=== PATIENT | female | born 1960 | race Caucasian/White ===

== ENCOUNTER → 2023-04-21 | Outpatient (CLI) | payer MEDICARE, BC | END | disposition home or self-care (01) | LOC: LABPAT 12:10 | PROVIDERS: ATTEND Orthopaedic Surgery | DX: Z01.818 Encounter for other preprocedural examination (principal); M17.12 Unilateral primary osteoarthritis, left knee; R94.31 Abnormal electrocardiogram [ECG] [EKG]; Z22.322 Carrier or suspected carrier of Methicillin resistant Staphylococcus aureus | CPT/HCPCS: 87070; 93005 ==

== ENCOUNTER 2023-06-28 06:24 | Day surgery (SDC) | payer MEDICARE, OTHER ==
--- NOTE | 2023-06-27 08:16 | P.HPOR ---
History of Present Illness H&P Date: 06/27/23 Chief Complaint: Left knee pain The patient is a 63-year-old female who presents with progressive left knee pain for the past several years worsening recently. She has pain with walking along with stairs and getting up from a seated position. She notes she's been limping. She's tried medications in addition to injections without much relief. Review of Systems As per HPI Past Medical History Past Medical History: Hypertension, Liver Disease, Osteoarthritis (OA) Additional Past Medical History / Comment(s): Cirrhosis/fatty liver seen by liver specialist and LFT are now normal. History of Any Multi-Drug Resistant Organisms: None Reported Past Surgical History: Appendectomy, Cholecystectomy, Hysterectomy Additional Past Surgical History / Comment(s): Liver biopsy, colonoscopy Past Anesthesia/Blood Transfusion Reactions: Postoperative Nausea & Vomiting (PONV) Additional Past Anesthesia/Blood Transfusion Reaction / Comment(s): Pt has never received blood. Smoking Status: Never smoker - Past Family History Father Family Medical History: Cancer Additional Family Medical History / Comment(s): to metastatic prostate cancer. Mother Family Medical History: Dementia Additional Family Medical History / Comment(s): Early dementia. Medications and Allergies Home Medications Medication Instructions Recorded Confirmed Type Ibuprofen 600 mg PO Q8H PRN 06/22/23 06/22/23 History Lisinopril-Hctz 10-12.5 mg 1 tab PO QAM 06/22/23 06/22/23 History [Zestoretic 10-12.5] Milk Thistle 1,000 mg PO BID 06/22/23 06/22/23 History Vit No.179/Iron/Folic 1 tab PO QAM 06/22/23 06/22/23 History [ Tablet] Allergies Allergy/AdvReac Type Severity Reaction Status Date / Time No Known Allergies Allergy Verified 06/22/23 09:41 Physical Examination - Knee left Appearance: effusion Effusion grade: grade 2 Varus alignment in stance: 5 degrees Tenderness with palpation: anterior, medial Pain: throughout ROM Gait: limping ROM: extension: -15 degrees ROM: flexion: 110 degrees Crepitus with motion: Yes Strength: extension: 5/5 Strength: flexion: 5/5 Meniscal tests: medial meniscal tests: positive, medial joint line pain: positive Results The patient's a well-developed well-nourished female, 5 foot 7 proximally 220 pounds of endomorphic habitus. HEENT exam is nonfocal, neck is supple. She has painless passive motion of her left hip. Straight leg raise is negative. On the left knee, she is tender about the medial joint line. Clots are stable, Josh exam, Arleth's elicits medial pain. Her distal neurovascular appears intact in the left lower extremity. - Diagnostic results Knee x-ray: image reviewed (3 views of the left knee obtained in the office show severe medial and patellofemoral compartment osteoarthrosis.) Assessment and Plan Assessment: Left knee severe medial and patellofemoral compartment osteoarthrosis Obesity Plan: I talked to the patient with regard to her condition along with treatment options. At this point she remains quite symptomatic having pain and mechanical symptoms despite attempted conservative measures. After a thorough discussion she opted to proceed with surgery. We will plan to proceed with left total knee arthroplasty. We'll institute DVT prophylaxis postoperatively.
[~2023-06-28 06:24] MED LIST: ACETAMINOPHEN TAB 500 MG TAB PO PRN; MELOXICAM 7.5 MG TAB PO PRN; TRANEXAMIC 1,000 MG/100ML-NACL 1,000 MG in SALINE 1 100ML.BAG IVPB PRN
[2023-06-28] MEDS ORDERED: ONDANSETRON 4 MG/2 ML VIAL IVP ONE ×2 (06:58→14:14)
[2023-06-28] MEDS ORDERED: DEXAMETHASONE SOD PHOSPHATE 4 MG/ML 1 ML VIAL IV ONE (06:58)
[2023-06-28] MEDS: LACTATED RINGERS 1,000 ML IV SCH (07:06)
[2023-06-28] MEDS ORDERED: fentaNYL (PF) 50 MCG/ML 2 ML AMP IVP ONE (07:57)
[2023-06-28] MEDS ORDERED: MIDAZOLAM 2 MG/2 ML VIAL IVP ONE (07:57)
[2023-06-28 08:21] LABS: Partial Thromboplastin Time 22.7 sec (22.0-30.0); Prothrombin Time 10.4 sec (9.0-12.0)
--- NOTE | 2023-06-28 08:53 | P.ANPRN ---
Procedure Note - Anesthesia - Nerve Block Performed Left Adductor Canal Infusion Time Out Performed: Yes (0756) Date of Procedure: 06/28/23 Procedure Start Time: 07:57 Procedure Stop Time: 08:03 Location of Patient: PreOp Indication: Acute Post-Operative Pain, Requested by Surgeon Specifically requested for management of pain by : Tin Lang Sedation Type: Sedate with meaningful contact maintained Preparation: Sterile Prep, Sterile Dressing Position: Supine Catheter Depth at Skin (cm): 8 Catheter: Indwelling Needle Types: Pajunk Needle Gauge: 18 Ultrasound used to visualize needle placement: Yes Ultrasound used to observe medication spread: Yes Injectate: 0.5% Ropivacaine (see comment for volume) (15cc +5cc nacl pf) Blood Aspirated: No Pain Paresthesia on Injection Noted: No Resistance on Injection: Normal Image Stored and Saved: Yes Events: Uneventful and Well Tolerated
--- NOTE | 2023-06-28 08:54 | P.ANPRN ---
Procedure Note - Anesthesia - Nerve Block Performed Left iPack Single Time Out Performed: Yes (0756) Date of Procedure: 06/28/23 Procedure Start Time: :04 Procedure Stop Time: 08:07 Location of Patient: PreOp Indication: Acute Post-Operative Pain, Requested by Surgeon Specifically requested for management of pain by DrAlejandro: Tin Lagn Sedation Type: Sedate with meaningful contact maintained Preparation: Sterile Prep Position: Supine Catheter: None Needle Types: Pajunk Needle Gauge: 21 Ultrasound used to visualize needle placement: Yes Ultrasound used to observe medication spread: Yes Injectate: 0.5% Ropivacaine (see comment for volume) (15cc + 5cc nacl pf) Blood Aspirated: No Pain Paresthesia on Injection Noted: No Resistance on Injection: Normal Image Stored and Saved: Yes Events: Uneventful and Well Tolerated
[2023-06-28] MEDS ORDERED: ceFAZolin 1,000 MG in SODIUM CHLORIDE 0.9% 1,000 ML IRRIGATION ONE (09:21)
[2023-06-28] MEDS ORDERED: NALOXONE 0.4 MG/ML 1 ML VIAL IV PRN (10:28)
[2023-06-28] MEDS ORDERED: HYDROcodone/APAP 5-325MG 1 EACH TAB PO PRN (10:28)
[2023-06-28] MEDS ORDERED: HYDROmorphone 0.5 MG/0.5 ML SYRINGE IVP PRN (10:28)
[2023-06-28] MEDS ORDERED: MAGNESIUM HYDROXIDE 2,400 MG/30 ML CUP PO PRN (10:28)
[2023-06-28] MEDS ORDERED: hydrOXYzine pamoate 25 MG CAP PO PRN (10:28)
--- NOTE | 2023-06-28 11:00 | P.OP ---
Date of Procedure: 06/28/23 Preoperative Diagnosis: Left knee severe tricompartmental osteoarthrosis Postoperative Diagnosis: Same Procedure(s) Performed: Left total knee arthroplastycementedposterior stabilized Implants: Depuy Attune size 6 narrow cemented femoral component, size 5 cemented tibial component, 11 mm articular surface, 35 mm cemented patellar component. This is a posterior stabilized implant. Anesthesia: regional, spinal Surgeon: Tin Lang [employer] Furnace Operator Helper #1: Son Osborn Estimated Blood Loss (ml): 50 Pathology: none sent Condition: stable Indications for Procedure: The patient's a 63-year-old female presents with progressive left knee pain secondary to osteoarthrosis despite conservative measures. A discussion of the risks and benefits of operative intervention versus continued conservative measures was made with patient. She opted to proceed with surgery. Operative risks to include infection, neurovascular injury, development of blood clots, fracture, possible component loosening/failure and need for subsequent procedures was discussed. Informed consent was obtained. Operative Findings: As below Description of Procedure: The patient was brought to the operating room, and after induction of spinal anesthesia the left lower extremity was prepped and draped in a normal fashion. The tourniquet was inflated to 270 mm marker. A longitudinal incision extending 3 finger breaths above the superior pole of patella extending to the medial aspect the tibial tubercle was then made. The skin and subcutaneous tissues were divided sharply. Electrocautery was used for hemostasis. A medial parapatellar arthrotomy was performed. The medial soft tissues to include the superficial and deep portions of the medial collateral ligament were elevated subperiosteally. The patella was everted. A portion of the retropatellar fat pad was excised sharply. The anterior cruciate ligament was sacrificed. Blunt retractors were placed. A starting hole was made in the distal femur 1 cm anterior to the posterior cruciate ligament origin. An intramedullary femoral guide was then inserted planning on 5 valgus distal cut with 9 mm distal resection. The cutting block was pinned in place. The distal cut was then made. The posterior referencing sizing guide was utilized. I felt size 6 narrow was most appropriate. 3 of external rotation was built into the system and verified off the trans-epicondylar axis and the posterior condyles. The cutting block was pinned in place. The anterior, posterior, and chamfer cuts then made. Bone fragments were removed. The intercondylar guide was placed and the notch cut was made with a sagittal saw. The bone block was removed in one fragment. The trial component was then placed. There is good anterior to posterior and medial to lateral fit. The distal peg holes were drilled. The trial component was removed. Attention was then paid towards preparing the proximal tibia. An extra medullary guide was utilized in line with the tibial shaft and second metatarsal distally. I planned on 2 mm resection from the medial compartment. The cutting block was pinned in place. The proximal tibial cut was then made. The bone was removed in one fragment. The remnants of the medial and lateral menisci were excised at the capsular junction with electrocautery. The tibia sized most appropriately at size 5. The trial femoral and tibial components were placed along with a 11 mm articular surface. I was able to obtain full flexion and extension with internal and external rotation. After several flexion and extension cycles, the tibial rotation was marked with electrocautery line with the medial one third of the tibial tubercle. Attention was then paid towards preparing the patella. A patella reamer was utilized taking stem to 14 mm of bone stock. A good flush cut was made. The patella sized most appropriately 35 mm. The peg holes were drilled. The trial components placed. I had good patellofemoral tracking with no hands technique. The trial components were then removed. The tibia was prepared in the appropriate rotation with appropriate drill and keel punch. The posterior osteophytes were removed with a curved osteotome. The flexion and extension gaps were checked and felt to be symmetric at 11 mm. A trial components were then removed. The bony surfaces were prepared with pulsatile lavage and dried. The tibial component was then cemented place was fully seated. Excess cement was removed. The femoral component cemented place and was fully seated. Excess cement was removed. The trial 11 mm articular surface was placed and the knee was put in full extension. The patella component was cemented place. After the cement had sufficiently hardened, the knee was again taken through a range of motion. Again I was able to obtain full flexion and extension with varus and valgus stress. The trial 11 mm articular surface was removed and the final one inserted. This was fully seated. Care was taken to avoid any soft tissue interposition. Pulsatile lavage was again utilized. The medial parapatellar arthrotomy was closed with #2 Ethibond suture. The tourniquet was deflated with approximately 60 minutes total tourniquet time. Final hemostasis was obtained with the cautery. There was minimal bleeding therefore a deep drain was not placed. The subcutaneous tissues were reapproximated with interrupted 2-0 Vicryl sutures. The skin was reapproximated with 3-0 subcuticular strata fix suture. Skin tape and adhesive was applied. A sterile dressing was applied. The patient was awoken from sedation and transferred to recovery room in good condition. Blood loss was estimated at 50 mL. No complications were incurred. Sponge and needle counts were correct at the end of the case. Son KNOX assisted during the major components of this case to include exposure, bone resection, implantation, and closure.
[2023-06-28] MEDS: HYDROmorphone 0.5 MG/0.5 ML SYRINGE IVP PRN ×5 (11:06→22:28)
[2023-06-28] MEDS ORDERED: ROPIVACAINE 1,100 MG, SODIUM CHLORIDE 0.9% 500 ML 330 ML, EMPTY PAIN BALL 1 EACH MISCELLANE PRN ×2 (11:37)
--- NOTE | 2023-06-28 11:42 | XR ---
EXAMINATION TYPE: XR knee limited LT DATE OF EXAM: 06/28/2023 11:33 AM INDICATION: Patient age:Female; 63 years old; Reason for study: Evaluation for Postop abnormality and alignment; [facility]. COMPARISON: Left knee radiograph 04/21/2023 TECHNIQUE: The Left knee(s) was examined in AP and crosstable lateral projections. FINDINGS: Post surgical changes from left knee arthroplasty with distal femoral and proximal tibial components. Hardware appears intact with appropriate alignment. Associated soft tissue gas and edema . No acute fracture or dislocation. IMPRESSION: Postsurgical changes from left knee arthroplasty. Hardware appears intact with appropriate alignment.
--- NOTE | 2023-06-28 16:52 | P.CONS ---
History of Present Illness - Reason for Consult Consult date: 06/28/23 - History of Present Illness Patient is a 63-year-old female with history of hypertension presenting for elective total left knee arthroplasty. [facility] physicians was consulted for medical management. Patient currently denies any chest pain, shortness of breath, abdominal pain, nausea, vomiting, diarrhea, constipation, or urinary complaints. Vital signs within normal limits. Currently on room air. Only labs available her coags which are within normal limits. Pertinent positives and negatives as discussed in HPI, a complete review of systems was performed and all other systems are negative. Patient seen and examined at bedside. Vital signs reviewed General: nontoxic, no distress, appears at stated age Derm: warm, dry, dressing clean, dry, intact Head: atraumatic, normocephalic, symmetric Eyes: EOMI, no lid lag, anicteric sclera, pupils equal round reactive to light ENT: Nose and ears atraumatic Neck: No thyromegaly, supple Mouth: no lip lesion, mucus membranes moist Cardiovascular: S1S2 reg, no murmur, no edema Lungs: clear to auscultation bilateral, no rhonchi, no rales, no wheeze, no accessory muscle use Abdominal: soft, nontender to palpation, no guarding, no appreciable orga nomegaly Ext: no gross muscle atrophy, muscle strength muscle strength 5 out of 5 in all 4 extremities, no contractures Neuro: CN II-XII grossly intact Psych: Alert, oriented, appropriate affect Assessment/Plan: Status post left total knee arthroplasty Hypertension - Management per surgery - cbc, bmp pending - restarted home medications Thank you for allowing us to participate in the care of this pleasant patient. Do not hesitate to contact us with questions. Someone can be reached from the [facility] hospitalist group all hours of the day at [phone] or via [employer]. Past Medical History Past Medical History: Hypertension, Liver Disease, Osteoarthritis (OA) Additional Past Medical History / Comment(s): Cirrhosis/fatty liver seen by liver specialist and LFT are now normal. History of Any Multi-Drug Resistant Organisms: None Reported Past Surgical History: Appendectomy, Cholecystectomy, Hysterectomy Additional Past Surgical History / Comment(s): Liver biopsy, colonoscopy Past Anesthesia/Blood Transfusion Reactions: Postoperative Nausea & Vomiting (PONV) Additional Past Anesthesia/Blood Transfusion Reaction / Comm: Pt has never received blood. Smoking Status: Never smoker - Past Family History Father Family Medical History: Cancer Additional Family Medical History / Comment(s): to metastatic prostate cancer. Mother Family Medical History: Dementia Additional Family Medical History / Comment(s): Early dementia. Medications and Allergies Home Medications Medication Instructions Recorded Confirmed Type Ibuprofen 600 mg PO Q8H PRN 06/22/23 06/28/23 History Lisinopril-Hctz 10-12.5 mg 1 tab PO QAM 06/22/23 06/28/23 History [Zestoretic 10-12.5] Milk Thistle 1,000 mg PO BID 06/22/23 06/28/23 History Vit No.179/Iron/Folic 1 tab PO QAM 06/22/23 06/28/23 History [ Tablet] Allergies Allergy/AdvReac Type Severity Reaction Status Date / Time No Known Allergies Allergy Verified 06/28/23 07:39 Physical Exam Vitals: Vital Signs Temp Pulse Resp BP Pulse Ox 06/28/23 13:52 60 16 146/69 95 06/28/23 13:30 68 16 154/71 95 06/28/23 13:00 63 16 131/69 96 06/28/23 12:30 61 16 130/84 93 L 06/28/23 12:15 66 16 124/88 99 06/28/23 12:00 52 L 16 138/81 99 06/28/23 11:45 57 L 16 183/88 99 06/28/23 11:35 59 L 14 179/82 99 06/28/23 11:15 68 14 182/84 99 06/28/23 10:56 97.8 F 56 L 14 137/80 99 06/28/23 08:12 60 16 168/74 99 06/28/23 07:20 97.2 F L 63 16 178/87 98 Intake and Output 06/28/23 06/28/23 06/28/23 06:59 14:59 22:59 Intake Total 851 Output Total 50 Balance 801 Intake: IV 851 Output: Estimated Blood Loss 50 Other: Weight 103.4 kg
[2023-06-28] MEDS: SENNOSIDES-DOCUSATE SODIUM 1 EACH TAB PO SCH (21:22)
[2023-06-28] MEDS: HYDROcodone/APAP 7.5-325MG 1 EACH TAB PO PRN (21:22)
[2023-06-28] MEDS: ONDANSETRON 4 MG/2 ML VIAL IVP PRN (22:25)
[2023-06-29] MEDS: HYDROmorphone 0.5 MG/0.5 ML SYRINGE IVP PRN ×3 (00:38→08:23)
[2023-06-29] MEDS: HYDROcodone/APAP 7.5-325MG 1 EACH TAB PO PRN ×4 (03:29→23:22)
--- NOTE | 2023-06-29 06:46 | P.PN ---
Progress Note - Text Progress Note Date: 06/29/23 patient was seen and evaluated at bedside. Status post postoperative day 1 for left-sided total knee arthroplasty patient had adductor canal catheter for postop pain control. Patient rated pain at rest 5 out of 10 in severity. Patient describes pain is aching, throbbing type on the sides of the knee and back of the knee. Patient started walking with support. With activity patient pain levels are 6-7 out of 10 in severity. With the help of oral pain medications pain levels are tolerable. Patient denied any weakness/ numbness in lower extremities. patient denied any fever, pain over the catheter site. Physical exam: Patient vital signs stable Patient is alert awake oriented 3 responding to all questions appropriately Examination of the catheter site showed dressing intact, no leaking fluid around the catheter, no redness, no tenderness over the catheter insertion area. plan: status post postoperative day 1 for left side total knee arthroplasty with adductor canal catheter for pain control. Patient was discussed to continue the medication until the pump is completely empty and instructed the patient how to discontinue the catheter.
[2023-06-29] MEDS: RIVAROXABAN 10 MG TAB PO SCH (08:23)
[2023-06-29] MEDS: ONDANSETRON 4 MG/2 ML VIAL IVP PRN (08:23)
[2023-06-29] MEDS: LACTATED RINGERS 1,000 ML IV SCH (08:24)
[2023-06-29] MEDS ORDERED: HYDROcodone/APAP 5-325MG 1 EACH TAB PO PRN ×2 (08:35→09:44)
[2023-06-29] MEDS ORDERED: HYDROcodone/APAP 7.5-325MG 1 EACH TAB PO PRN (08:35)
[2023-06-29] MEDS: LISINOPRIL-HCTZ 10-12.5 MG 1 EACH TAB PO SCH (09:56)
[2023-06-29 10:53] LABS: Basophils # (A) 0.02 X 10*3/uL (0.00-0.10); Basophils % (A) 0.2 %; Eosinophils # (A) 0.01 X 10*3/uL (0.04-0.35); Eosinophils % (A) 0.1 %; HCT 34.8 % (37.2-46.3); HGB 11.4 d/dL (12.0-15.0); Lymphocytes # (A) 1.42 X 10*3/uL (0.90-5.00); Lymphocytes % (A) 14.4 %; MCH 29.9 pg (27.0-32.0); MCHC 32.8 d/dL (32.0-37.0); MCV 91.3 FL (80.0-97.0); Mean Platelet Volume 11.6 FL (9.5-12.2); Monocytes # (A) 1.38 X 10*3/uL (0.20-1.00); NRBC Per 100 WBC 0 X 10*3/uL (0.00-0.01); Neutrophils # (A) 7.03 X 10*3/uL (1.80-7.70); Neutrophils % (A) 71.1 %; Platelet Count 147 X 10*3/uL (140-440); RBC 3.81 X 10*6/uL (4.10-5.20); RDW 12.2 % (11.5-14.5); WBC 9.88 X 10*3/uL (4.50-10.00)
[2023-06-29 11:03] LABS: Blood Urea Nitrogen 11.7 mg/dL (9.0-27.0); Calcium 8.6 mg/dL (8.7-10.3); Carbon Dioxide 23.7 mmol/L (21.6-31.8); Chloride 104 mmol/L (96-109); Glucose 130 mg/dL (70-110); Potassium 3.6 mmol/L (3.5-5.5); Sodium 137 mmol/L (135-145)
--- NOTE | 2023-06-29 11:03 | P.PN ---
Subjective Progress Note Date: 06/29/23 Principal diagnosis: Left knee osteoarthritis Patient was seen at bedside this morning lying semirecumbent position with dressing to left upper extremity over knee. Patient says she has been in a lot of pain since surgery yesterday. Patient says she has not been up walking since surgery was performed. Patient says that she is not in too much pain to get up and walk. Patient says she has not had a bowel movement since surgery. Physical therapy had not yet been by to the room to work with patient. Patient does have a walker at home and does have spots and family at home that we'll be able to help her out. Patient states that most of the pain is at the front of the knee and rates it as 8/10 currently. Patient denies any radiation of pain. Patient denies any other changes. Patient denies chest pain, fever, shortness of breath, nausea, vomiting, change in vision, loss of bowel/bladder control. Objective - Vital Signs Vital signs: Vital Signs Temp 97.8 F 06/29/23 00:25 Pulse 72 06/29/23 00:25 Resp 18 06/29/23 00:25 BP 129/74 06/29/23 00:25 Pulse Ox 97 06/29/23 00:25 FiO2 Intake & Output 06/28/23 06/29/23 06/29/23 18:59 06:59 18:59 Intake Total 851 Output Total 450 50 Balance 401 -50 Weight 103.4 kg Intake: IV 851 Output: Urine 400 50 Estimated Blood Loss 50 Other: Voiding Method External Catheter - Exam Left knee: Incision is clean, dry, and intact. The exofin fusion tape is in good condition. There is minimal soft tissue swelling and ecchymosis surrounding the medial and lateral aspects of the incision. Calf is soft, no tenderness with palpation. Plantar flexion, dorsiflexion, EHL, FHL are intact. Sensory exam to light touch throughout the extremity is intact, dorsal pedis pulses 2+. - Labs CBC & Chem 7: 06/29/23 06:58 Assessment and Plan Assessment: 1. Left knee osteoarthritis - Postop day #1 status post left total knee arthroplasty Plan: 1. Left knee osteoarthritis - left total knee arthroplasty performed yesterday, 06/28/2023. Patient stable at bedside this morning. Patient has been in a lot of pain and has not been up walking. We will change pain medication from 1 Mineral every 6 hours to 12 every 6 hours as needed for pain. PT evaluation pending. We will plan to keep patient 1 more night for additional pain control and work with physical therapy. We will reassess tomorrow with plans for hopeful discharge home tomorrow with health services. 2. Appreciate medical management 3. Pain management - Mineral 12 every 6 hours; Vistaril for breakthrough pain 4. DVT prophylaxis - Xarelto in hospital 5. GI prophylaxis - senna 6. PT/OT - weightbearing as tolerated with walker 7. Encourage incentive spirometer use 8. Discharge planning - plan for discharge home tomorrow with health services Time with Patient: Less than 30
--- NOTE | 2023-06-29 11:44 | P.PN ---
Subjective Progress Note Date: 06/29/23 Subjective: Patient seen and examined at bedside. No acute events overnight. Continues to have significant knee pain. Denies any other complaints. Pertinent positives and negatives as discussed above, a complete review of systems was performed and all other systems are negative. Vitals Signs Reviewed. General: nontoxic, no distress, appears at stated age Derm: warm, dry, dressing clean, dry, intact Head: atraumatic, normocephalic, symmetric Eyes: EOMI, no lid lag, anicteric sclera, pupils equal round reactive to light ENT: Nose and ears atraumatic Neck: No thyromegaly, supple Mouth: no lip lesion, mucus membranes moist Cardiovascular: S1S2 reg, no murmur, no edema Lungs: clear to auscultation bilateral, no rhonchi, no rales, no wheeze, no accessory muscle use Abdominal: soft, nontender to palpation, no guarding, no appreciable organomegaly Ext: no gross muscle atrophy, muscle strength muscle strength 5 out of 5 in all 4 extremities, no contractures Neuro: CN II-XII grossly intact Psych: Alert, oriented, appropriate affect Data Reviewed Today: Pertinent Labs: WBC 9.88, hemoglobin 11.4, sodium 137, creatinine 0.6 Imaging: No new imaging Assessment and Plan: Status post left total knee arthroplasty Acute blood loss anemia, expected outcome of surgery Hypertension - Management per surgery -Surgery not reviewed, possibly discharge tomorrow with home care -Still having significant pain, currently on oral Kouts as needed, IV Dilaudid as needed -Pain management also following -Stable hemoglobin, no active bleeding -Continue home antihypertensives Thank you for allowing us to participate in the care of this pleasant patient. Do not hesitate to contact us with questions. Someone can be reached from the [facility] hospitalist group all hours of the day at [phone] or via [employer]. Objective - Vital Signs Vital signs: Vital Signs Temp 98.5 F 06/29/23 08:00 Pulse 74 06/29/23 08:00 Resp 18 06/29/23 08:00 BP 121/74 06/29/23 08:00 Pulse Ox 93 L 06/29/23 08:00 FiO2 Intake & Output 06/28/23 06/29/23 06/29/23 18:59 06:59 18:59 Intake Total 851 Output Total 450 50 Balance 401 -50 Weight 103.4 kg Intake: IV 851 Output: Urine 400 50 Estimated Blood Loss 50 Other: Voiding Method External Catheter External Catheter - Labs CBC & Chem 7: 06/29/23 06:58 06/29/23 06:57 Labs: Abnormal Lab Results - Last 24 Hours (Table) 06/29/23 06/29/23 Range/Units 06:57 06:58 RBC 3.81 L (4.10-5.20) X 10*6/uL Hgb 11.4 L (12.0-15.0) d/dL Hct 34.8 L (37.2-46.3) % Monocytes # 1.38 H (0.20-1.00) X 10*3/uL Eosinophils # 0.01 L (0.04-0.35) X 10*3/uL Glucose 130 H (70-110) mg/dL Calcium 8.6 L (8.7-10.3) mg/dL
[2023-06-29 19:51] VITALS: RESP 18
[2023-06-29] MEDS: SENNOSIDES-DOCUSATE SODIUM 1 EACH TAB PO SCH (20:52)
[2023-06-30 03:28] VITALS: PULSE 74
[2023-06-30] MEDS: HYDROcodone/APAP 7.5-325MG 1 EACH TAB PO PRN ×2 (05:02→11:43)
[2023-06-30] MEDS: LACTATED RINGERS 1,000 ML IV SCH (06:49)
[2023-06-30 07:31] VITALS: BP 131/86; TEMP 98.8
[2023-06-30] MEDS: LISINOPRIL-HCTZ 10-12.5 MG 1 EACH TAB PO SCH (07:52)
[2023-06-30] MEDS: RIVAROXABAN 10 MG TAB PO SCH (07:52)
--- NOTE | 2023-06-30 08:47 | P.DS ---
Providers Date of admission: 06/28/2023 Expected date of discharge: 06/30/23 Attending physician: Tin Lang Consults: 06/28/23 10:28 Consult Physician Routine Consulting Provider: Serenity Morales Consult Reason/Comments: medical management s/p left total knee arthroplasty Do you want consulting provider notified?: Yes Primary care physician: Stated None Hospital Course: Date of admission: 06/28/2023 Date of discharge: 06/30/2023 Admission diagnosis: Left knee osteoarthritis Discharge diagnosis: same Attending physician: Dr. Lang Surgical procedures: Left total knee arthroplasty Brief history: Patient is a 63-year-old female with a history of progressive primary left knee osteoarthritis. At this point patient has failed conservative treatment measures and has opted to proceed with a elective left total knee arthroplasty. Hospital course: Details of patient's surgery can be found in operative report. Patient tolerated the procedure well and was subsequently transported to orthopedic floor. Patient's orthopeidc and medical care was provided daily. Patient had daily laboratory tests performed for evaluation of overall blood counts. Patient had daily physical therapy to include strengthening range of motion as well as education with walker ambulation. Patient was treated with Xarelto for their postoperative DVT prophylaxis during their inpatient stay. Patient was noted to have a relatively uneventful postoperative course. Patient reported satisfactory pain control with oral pain medications by postoperative day 2. Patient showed satisfactory progress with physical therapy. Patient moved steadily through the program and had no difficulty meeting the goals by postoperative day 2. Given patient's otherwise satisfactory course and having met physical therapy goals, plan is to discharge patient home with health services on postoperative day 2. Discharge condition/disposition: Patient will be discharged home with health services in stable condition. Discharge medications: Instructions are given on resumption of patient's normal daily medications per primary care recommendation, in addition patient will be prescribed [place] 7.5 mg/325 mg 12 every 6 hours; senna; eliquis 2.5 mg BID x 2weeks Discharge instructions: 1. Wound care and infection precutions, [keep incision dry and covered while howering], no lotions, creams, moisturizers. No soaking, tubs, pools, hottubs. Do not scrub over the incision. 2. Weiht-bear [as olerated] with walker / cane until follow-up. 3. Ice and elevate when necessary. Do not exceed 20 minutes per hour with ice pack. 4. Utilize compression sleeve until seen at first follow up appointment. 5. Visiting nursing care. 6. Home physicaltherapy [includinghome CPM]. 7. Pain meds and anticoagulants per prescription. 8. Pain medication has potential to cause constipation. Increase oral fluid and fiber intake. Contact primary care provider if you have not had a bowel movement within 48 hours after discharge 9. No anti-inflammatory medication until discussed at first post operative visit, this including Motrin, Aleve, Mobic, Dicofenac. 10. Follow up in office at 2 weeks postop with Shakir Felix PA-C / Son Osborn PA-C 11. Follow up with your primary care doctor 7-10 days after discharge. 12. Contact [facility] with any questions, . Assessment: Right knee osteoarthritis Procedures: Right total knee arthroplasty Patient Condition at Discharge: Good Plan - Discharge Summary Discharge Rx Participant: No New Discharge Prescriptions: New Apixaban [Eliquis] 2.5 mg PO BID #60 tab HYDROcodone/APAP 7.5-325MG [[place] 7.5-325] 1 - 2 tab PO Q6HR PRN #36 tab PRN Reason: Pain Sennosides/Docusate Sodium [Senna Plus 8.6-50 mg Softgel] 1 each PO DAILY #20 capsule No Action Vit No.179/Iron/Folic [ Tablet] 1 tab PO QAM Milk Thistle 1,000 mg PO BID Lisinopril-Hctz 10-12.5 mg [Zestoretic 10-12.5] 1 tab PO QAM Ibuprofen 600 mg PO Q8H PRN PRN Reason: Pain Discharge Medication List Ibuprofen 600 mg PO Q8H PRN 06/22/23 [History] Lisinopril-Hctz 10-12.5 mg [Zestoretic 10-12.5] 1 tab PO QAM 06/22/23 [History] Milk Thistle 1,000 mg PO BID 06/22/23 [History] Vit No.179/Iron/Folic [ Tablet] 1 tab PO QAM 06/22/23 [History] Apixaban [Eliquis] 2.5 mg PO BID #60 tab 06/30/23 [Rx] HYDROcodone/APAP 7.5-325MG [[place] 7.5-325] 1 - 2 tab PO Q6HR PRN #36 tab 06/30/23 [Rx] Sennosides/Docusate Sodium [Senna Plus 8.6-50 mg Softgel] 1 each PO DAILY #20 capsule 06/30/23 [Rx] Follow up Appointment(s)/Referral(s): Son Osborn, FREDDY [PHYSICIAN [employer]CE[employer] LIFEGUARD SPECIALIST] - 07/14/23 9:00 am [facility] [NON-STAFF] - [address] ([address] [facility] when you get home and they will deliver your cpm) [facility], [NON-STAFF] - 1 Week ([facility] will call you to arrange a visit) Patient Instructions/Handouts: Knee Replacement (DC) Activity/Diet/Wound Care/Special Instructions: Orthopedic Discharge Instructions: 1. Wound care and infection precautions, keep incision dry and covered while showering, no lotions, creams, moisturizers. No soaking, pools, hot tubs. Do not scrub over incision. 2. Weight-bear as tolerated with walker / cane until follow-up. 3. Ice and elevate when necessary. Do not exceed 20 minutes per hour with ice pack. 4. Utilize compression sleeve until seen at first follow up appointment. 5. Pain meds and anticoagulants per prescription. 6. Pain medication has potential to cause constipation. Increase oral fluid and fiber intake. Contact primary care provider if you have not had a bowel movement within 48 hours after discharge. 7. No anti-inflammatory medication until discussed at first post operative visit, this including Motrin, Aleve, Mobic, Diclofenac. 8. Follow up in office at 2 weeks postop with Shakir Felix PA-C / Son Osborn PA-C 9. Follow up with your primary care doctor 7-10 days after discharge. 10. Contact [facility] with any questions, . Keep incision clean, dry, intact. While showering, cover fusion tape with Saran wrap. Keep fusion tape on until follow-up appointment in office in 2 weeks Discharge Disposition: HOME WITH HOME HEALTH SERVICES
--- NOTE | 2023-06-30 09:36 | P.PN ---
Subjective Progress Note Date: 06/30/23 Principal diagnosis: Left knee osteoarthritis Patient was seen at bedside this morning lying semirecumbent position the dressing present over left knee. Patient states her pain level is much better this morning. She rates it as 2/10 currently. She feels that taking 2 [place] every 6 hours has been helping her control pain much better. Patient says she has urinated several times since she has been up walking since yesterday evening. Patient denies any other changes at this time. Patient says she does have a walker at home. Patient says she is looking for [place] home later today. Patient denies chest pain, fever, shortness breath, nausea, vomiting, change in vision, loss/bladder control. Objective - Vital Signs Vital signs: Vital Signs Temp 98.8 F 06/30/23 07:00 Pulse 74 06/30/23 07:00 Resp 18 06/30/23 07:00 BP 131/86 06/30/23 07:00 Pulse Ox 93 L 06/30/23 07:00 FiO2 Intake & Output 06/29/23 06/30/23 06/30/23 18:59 06:59 18:59 Intake Total 80 480 Balance 80 480 Intake: Intake, IV Titration 80 Amount Lactated Ringers 1,000 ml 80 @ 20 mls/hr IV .Q24H [facility] Rx#:[id number] Oral 480 Other: Voiding Method External Catheter External Catheter # Voids 3 1 - Exam Left knee: Incision is clean, dry, and intact. The exofin fusion tape is in good condition. There is minimal soft tissue swelling and ecchymosis surrounding the medial and lateral aspects of the incision. Calf is soft, no tenderness with palpation. Plantar flexion, dorsiflexion, EHL, FHL are intact. Sensory exam to light touch throughout the extremity is intact, dorsal pedis pulses 2+. - Labs CBC & Chem 7: 06/29/23 06:58 06/29/23 06:57 Labs: Abnormal Lab Results - Last 24 Hours (Table) 06/29/23 06/29/23 Range/Units 06:57 06:58 RBC 3.81 L (4.10-5.20) X 10*6/uL Hgb 11.4 L (12.0-15.0) d/dL Hct 34.8 L (37.2-46.3) % Monocytes # 1.38 H (0.20-1.00) X 10*3/uL Eosinophils # 0.01 L (0.04-0.35) X 10*3/uL Glucose 130 H (70-110) mg/dL Calcium 8.6 L (8.7-10.3) mg/dL Assessment and Plan Assessment: 1. Left knee osteoarthritis - Postop day #2 status post left total knee arthroplasty Plan: 1. Left knee osteoarthritis - left total knee arthroplasty performed 06/28/2023. Patient stable at bedside this morning. Patient is doing much better today and has been walking around the room using restroom since yesterday evening. Continue with 12 [place] every 6 hours for pain. PT/OT daily. Patient does have a walker at home. Discharge home today with health services. 2. Appreciate medical management 3. Pain management - [place] 12 every 6 hours; Vistaril for breakthrough pain 4. DVT prophylaxis - Xarelto in hospital; going home with eliquis 5. GI prophylaxis - senna 6. PT/OT - weightbearing as tolerated with walker 7. Encourage incentive spirometer use 8. Discharge planning - discharge home today with health services Time with Patient: Less than 30
--- NOTE | 2023-06-30 10:38 | P.PN ---
Subjective Progress Note Date: 06/30/23 Subjective: Patient seen and examined at bedside. No acute events overnight. Knee pain improved. Denies any other complaints. Pertinent positives and negatives as discussed above, a complete review of systems was performed and all other systems are negative. Vitals Signs Reviewed. General: nontoxic, no distress, appears at stated age Derm: warm, dry, dressing clean, dry, intact Head: atraumatic, normocephalic, symmetric Eyes: EOMI, no lid lag, anicteric sclera, pupils equal round reactive to light ENT: Nose and ears atraumatic Neck: No thyromegaly, supple Mouth: no lip lesion, mucus membranes moist Cardiovascular: S1S2 reg, no murmur, no edema Lungs: clear to auscultation bilateral, no rhonchi, no rales, no wheeze, no accessory muscle use Abdominal: soft, nontender to palpation, no guarding, no appreciable organomegaly Ext: no gross muscle atrophy, muscle strength muscle strength 5 out of 5 in all 4 extremities, no contractures Neuro: CN II-XII grossly intact Psych: Alert, oriented, appropriate affect Data Reviewed Today: Pertinent Labs: No new labs Imaging: No new imaging Assessment and Plan: Status post left total knee arthroplasty Acute blood loss anemia, expected outcome of surgery Hypertension -Management per surgery -Surgery note reviewed, patient being discharged -currently on oral [place] as needed, IV Dilaudid as needed -Pain management also following -Stable hemoglobin, no active bleeding -Continue home antihypertensives Patient is medically optimized for discharge home with home care. Thank you for allowing us to participate in the care of this pleasant patient. Do not hesitate to contact us with questions. Someone can be reached from the [facility] hospitalist group all hours of the day at [phone] or via [facility] [employer]. Objective - Vital Signs Vital signs: Vital Signs Temp 98.8 F 06/30/23 07:00 Pulse 74 06/30/23 07:00 Resp 18 06/30/23 07:00 BP 131/86 06/30/23 07:00 Pulse Ox 93 L 06/30/23 07:00 FiO2 Intake & Output 06/29/23 06/30/23 06/30/23 18:59 06:59 18:59 Intake Total 80 480 Balance 80 480 Intake: Intake, IV Titration 80 Amount Lactated Ringers 1,000 ml 80 @ 20 mls/hr IV .Q24H [facility] Rx#:[id number] Oral 480 Other: Voiding Method External Catheter External Catheter # Voids 3 1 - Labs CBC & Chem 7: 06/29/23 06:58 06/29/23 06:57 Labs: Abnormal Lab Results - Last 24 Hours (Table) 06/29/23 06/29/23 Range/Units 06:57 06:58 RBC 3.81 L (4.10-5.20) X 10*6/uL Hgb 11.4 L (12.0-15.0) d/dL Hct 34.8 L (37.2-46.3) % Monocytes # 1.38 H (0.20-1.00) X 10*3/uL Eosinophils # 0.01 L (0.04-0.35) X 10*3/uL Glucose 130 H (70-110) mg/dL Calcium 8.6 L (8.7-10.3) mg/dL
== END 2023-06-30 12:10 | disposition home health service (06) ==
LOC: OR 06:24 → 4SSUR 10:56 → OR 06-30 12:10
PROVIDERS: ATTEND Orthopaedic Surgery
DX: M17.12 Unilateral primary osteoarthritis, left knee (principal); G89.18 Other acute postprocedural pain; I10 Essential (primary) hypertension; K76.0 Fatty (change of) liver, not elsewhere classified; Z90.710 Acquired absence of both cervix and uterus; Z90.49 Acquired absence of other specified parts of digestive tract; Z79.899 Other long term (current) drug therapy
CPT/HCPCS: 97162; 64999; 64448; 80048; 85025; 85610; 85730; 73560; 27447; C1713 ×2; C1776; C1751; J2250; J1100; J0690 ×3; J2405 ×2; J3010; J1170 ×2